=== PATIENT | female | born 1945 | race Caucasian/White ===

== ENCOUNTER 2020-04-08 21:36 | Observation (INO) | payer MEDICARE ==
[~2020-04-08] VITALS: Ht 167.6 cm; Wt 98.4 kg
[~2020-04-08 21:36] MED LIST: ASPIRIN81 MG PO; CLONAZEPAM 0.50.5 M1 PO; FOLIC ACID1 MG PO; HYDROCHLOROTHIA25 M1 PO; LISINOPRIL40 MG PO; LYRICA; OMEPRAZOLE 20 M20 M1 PO; OXYBUTYNIN CHLOR5 M1 PO; POTASSIUM CHLO10 ME1 PO; SERTRALINE HCL50 MG PO; SIMVASTATIN40 MG PO; SUPER B COMPLE1 EAC2 PO; VERAPAMIL SR240 MG PO; VITAMIN D400 UNI1 PO
[2020-04-08 21:41] VITALS: BP 182/114
[2020-04-08] MEDS ORDERED: GABAPENTIN100 MG PO (21:53)
[2020-04-08] MEDS ORDERED: BENADRYL25 MG PO (21:54)
[2020-04-08] MEDS ORDERED: KEFLEX500 M1 PO (21:54)
[2020-04-08] MEDS ORDERED: FISH OIL 1,0001 EAC9 PO (21:55)
[2020-04-08] MEDS ORDERED: IRON160 M1 PO (21:55)
[2020-04-08] MEDS ORDERED: PANTETHINE PO (21:56)
[2020-04-08] MEDS ORDERED: BENTYL 10 MG CA10 MG PO (21:57)
[2020-04-08] MEDS ORDERED: FLEXERIL PO (21:58)
[2020-04-08] MEDS ORDERED: ALPRAZOLAM 0.50.5 M1 PO (21:58)
[2020-04-08 22:07] LABS: ABSOLUTE BASOPHILS 0.1 thou/uL (0.0-0.2); ABSOLUTE EOSINOPHILS 0.1 thou/uL (0.0-0.7); ABSOLUTE LYMPHOCYTES 2.9 thou/uL (0.8-5.3); ABSOLUTE MONOCYTES 0.7 thou/uL (0.0-1.2); ABSOLUTE NEUTROPHILS 5.3 thou/uL (1.6-8.1); BASOPHILS 1.5 %; EOSINOPHILS 1.2 %; HEMATOCRIT 47.5 % (37.0-47.0); HEMOGLOBIN 16.3 gm/dL (12.0-15.0); LYMPHOCYTES 31.9 %; MCH 29.9 pg (26.0-34.0); MCHC 34.3 g/dL (28.0-37.0); MONOCYTES 7.2 %; MPV 8.4 fl. (7.2-11.1); NUCLEATED RBCS 0 /100WBC; PLATELET COUNT* 143 thou/uL (150-400); POLYS 58.2 %; RBC 5.46 mil/uL (4.20-5.00); RDW-CV 14.3 % (10.5-14.5); WBC 9.2 thou/uL (4.0-11.0)
[2020-04-08 22:15] LABS: CALCIUM 10.4 mg/dL (8.5-10.1); POTASSIUM 3.3 mmol/L (3.5-5.1)
[2020-04-08 22:16] LABS: INR 1.1; PROTIME 11.9 Seconds (9.20-11.50)
[2020-04-08 22:25] LABS: ALBUMIN 3.9 g/dL (3.4-5.0); TOTAL BILIRUBIN 0.6 mg/dL (<0.1-1.0); TOTAL PROTEIN 7.8 g/dL (6.4-8.2)
[2020-04-09 02:14] VITALS: BP 128/80
[2020-04-09 02:45] VITALS: BP 136/67
[2020-04-09 08:20] VITALS: BP 142/75
[2020-04-09 08:39] LABS: CHOLESTEROL 165 mg/dL (<200); HDL CHOLESTEROL 40 mg/dL (>40); LDL CHOLESTEROL 107 mg/dL (<100); SERUM ASSESSMENT Clear; TC:HDL 4.1 Ratio (Not establshd); TRIGLYCERIDE 91 mg/dL (<150); VLDL 18 mg/dL (<40)
--- NOTE | 2020-04-09 11:04 | EKG ---
[place] [address] ELECTROCARDIOGRAM REPORT Name: NIKOLASCECILIAA Judah Room: [address]#: [id number] Admission: 04/09/20 Attend Phys: Wander Ma Discharge: Date of : 47 Date of Service: 04/08/202141 Report #: [id number] THIS REPORT FOR: //name// [facility] ED Test Date: 2020-04-08 Test Time: 21:42:02 Pat Name: DEIRDRE CONNOR Department: Room: [facility] Gender: F Refrigeration Person: LAWRENCE : 1945 Requested By: Miranda Maldonado Order Number: [id number] MD: Sawyer Tello Measurements Intervals [place] Rate: 101 P: 42 GA: 171 QRS: -28 QRSD: 140 T: -45 QT: 374 QTc: 485 Interpretive Statements Sinus tachycardia Right bundle branch block Compared to ECG 03/04/2012 00:34:38 Sinus rhythm no longer present Electronically Signed On 04-09-2020 11:03:50 GATE PERSON by Sawyer Tello [email or web address] <ELECTRONICALLY SIGNED> By: Sawyer Tello MD, FACC 04/09/20 1103 41 41 Sawyer Tello MD, [facility] /EPI
--- NOTE | 2020-04-09 11:05 | EKG ---
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1945 Requested By: Wander Ma Order Number: [id number] Abelardo MD: Sawyer Tello Measurements Intervals [place] Rate: 75 P: 36 AK: 185 QRS: -11 QRSD: 146 T: -62 QT: 451 QTc: 504 Interpretive Statements Sinus rhythm Right bundle branch block Artifact in lead(s) I,III,aVR,aVL,aVF,V3,V4,V5,V6 and baseline wander in lead(s) V1,V3 Compared to ECG 04/08/2020 21:42:02 Sinus tachycardia no longer present Electronically Signed On 04-09-2020 11:05:17 DEBONE SUPERVISOR by Sawyer Tello [email or web address] <ELECTRONICALLY SIGNED> By: Sawyer Tello MD, [facility] 04/09/20 1105 0639 0639 Sawyer Tello MD, [facility] /EPI
[2020-04-09 11:48] LABS: CALCIUM 10.1 mg/dL (8.5-10.1); CREATININE 0.9 mg/dL (0.6-1.3); POTASSIUM 3.4 mmol/L (3.5-5.1)
[2020-04-09 12:05] VITALS: BP 134/73
[2020-04-09 16:03] VITALS: BP 148/78
[2020-04-09 20:00] VITALS: BP 150/79
[2020-04-10 04:30] VITALS: BP 132/76
[2020-04-10 04:58] LABS: ABSOLUTE EOSINOPHILS 0.1 thou/uL (0.0-0.7); ABSOLUTE LYMPHOCYTES 2.6 thou/uL (0.8-5.3); ABSOLUTE MONOCYTES 0.4 thou/uL (0.0-1.2); ABSOLUTE NEUTROPHILS 2.8 thou/uL (1.6-8.1); BASOPHILS 0.5 %; EOSINOPHILS 1.3 %; HEMATOCRIT 32.6 % (37.0-47.0); LYMPHOCYTES 44.5 %; MCH 30.1 pg (26.0-34.0); MCHC 34.3 g/dL (28.0-37.0); MCV 87.8 fL (80.0-100.0); MONOCYTES 6.8 %; MPV 8.3 fl. (7.2-11.1); NUCLEATED RBCS 0 /100WBC; PLATELET COUNT* 92 thou/uL (150-400); POLYS 46.9 %; RBC 3.71 mil/uL (4.20-5.00); WBC 5.9 thou/uL (4.0-11.0)
[2020-04-10 05:09] LABS: HEMOGLOBIN 11.2 gm/dL (12.0-15.0)
[2020-04-10 05:13] LABS: CREATININE 0.5 mg/dL (0.6-1.3)
[2020-04-10 05:50] LABS: POTASSIUM 2.3 mmol/L (3.5-5.1)
[2020-04-10 06:24] LABS: CREATININE 0.8 mg/dL (0.6-1.3)
[2020-04-10 06:28] LABS: ALBUMIN 3.3 g/dL (3.4-5.0); TOTAL BILIRUBIN 0.6 mg/dL (<0.1-1.0); TOTAL PROTEIN 6.5 g/dL (6.4-8.2)
[2020-04-10 06:30] LABS: CALCIUM 9.2 mg/dL (8.5-10.1); POTASSIUM 3.6 mmol/L (3.5-5.1)
[2020-04-10 08:00] VITALS: BP 141/60
[2020-04-10 12:03] VITALS: BP 132/75
[2020-04-10 12:43] VITALS: BP 132/75
--- NOTE | 2020-04-10 17:06 | CARDNUC ---
[place] [address] CARDIAC NUCLEAR IMAGING REPORT Name: DEIRDRE CONNOR Room: [address] Les#: [id number] Admission: 04/09/20 Attend Phys: Wander Ma Discharge: 04/10/20 Date of : 47 Date of Service: 04/10/20 1706 Report #: [id number] THIS REPORT FOR: cc: Sujata Good MD, Diane S. MD Liston, Michael J. MD [facility] ~ APPROVED REPORT Imaging Protocol: Stress Tc-99m/Rest Tc-99m 2 days Study performed: 04/09/2020 08:14:00 Indication: chest pain radiating to between scapulas/back, nausea, dizziness. Patient Location: In-Patient Room #: 211 Stress Tech: Lynn Oneill Stress Nurse: Tati Tamez RN NM Tech:GABE Gbison Ht: 5 ft 6 in Wt: 214 lbs BSA: 2.06 m2 BMI: 34.53 Medical History Medical History: Angina radiating back to between scapulas, mild nausea, epigastric discomfort, RBBB, borderline DM, dizziness, knee replacement x2, right renal artery stent, HTN, HLD, family HX of CAD, Obesity, unsteady- shuffled gait. Medications: HCTZ, lisinopril, verapamil, hydralazine, NTG, Metformin, ASA 81 Mg, Fish Oil, home meds include K+. Allergies: Percocet, PNC, propoxyphene napsylate, sulfa ABX, acetaminnophen, cephalexin. Cardiac Risk Factors: Age, borderline DM, HTN, FHX of CAD, Hyperlipidemia, RBBB, obesity. Previous Cardiac Procedures: None Pretest Chest Pain Characteristics: No chest pain Exercise History: Indeterminate Physical Disabilities: Weakness, fatigue, unsteady-shuffled gait. Meds Held (24 hrs): None Resting Data Rest SPECT myocardial perfusion imaging was performed in supine position 30 minutes following the intravenous injection of 31.2 mCi of Tc-99m [place] [address] CARDIAC NUCLEAR IMAGING REPORT Name: CONNORDEIRDRE [address] [id number] Admission: 04/09/20 Attend Phys: Wander Ma Discharge: 04/10/20 Date of : 47 Date of Service: 04/10/20 1706 Report #: [id number] Time of rest injection: 904 Date: 04/10/2020 The images were gated to evaluate regional wall motion and calculate left ventricular ejection fraction. Administration Route: IV Administration Site: Right Arm Pharmacologic Stress Pharmacologic stress test was performed by injecting Regadenoson 0.4 mg IV push over 10-15 seconds immediately followed by the intravenous injection of 31.5 mCi of Tc-99m Sestamibi. Time of stress injection: 13:45 Date: 04/09/2020 Administration Route: IV Administration Site: Right Arm Heart Rate at time of stress injection: 138 bpm. Gated Stress SPECT was performed 40 minutes after stress injection. The images were gated to evaluate regional wall motion and calculate left ventricular ejection fraction. Stress Test Details Stress Test: Pharmacologic stress was paired with low level exercise. Reason for pharmacologic stress test: Weakness, fatigue, unsteady-shuffled gait.. HR Max Heart Rate (APMHR): 146 bpm Resting HR: 78 bpm Target HR (85% APMHR): 124 bpm Max HR Achieved: 138 bpm % of APMHR: 94 Recovery HR: 101 bpm BP Resting BP: 145/91 mmHg Max BP: 217/120 mmHg Recovery BP: 150/101 mmHg ECG Resting ECG: Sinus Rhythm, RBBB Stress ECG: Sinus tachycardia, RBBB ST Change: None Arrhythmia: None Recovery ECG: Sinus Rhythm, RBBB Recovery ST Change: None Recovery Arrhythmia: None Clinical Reason for Termination: [place] [address] CARDIAC NUCLEAR IMAGING REPORT Name: DEIRDRE CONNOR Judah Room: [address] MSly#: [id number] Admission: 04/09/20 Attend Phys: Wander Ma Discharge: 04/10/20 Date of : 47 Date of Service: 04/10/20 1706 Report #: [id number] Stress Symptoms: dyspnea, fatigue, weakness, leg fatigue, increased instabillity walking. Exercise duration: 4 min 00 sec Exercise capacity: 2.30 METs The patient tolerated walking Lexiscan protocol without any cardiac symptoms. Nurse Comments A 75 year old female inpatient presented for a walking Lexiscan. Treadmill and Lexiscan tolerated with physical support and reduced speed from 1.7 mph to 1.1 mph. Recovery unremarkable with continued hypertension, asymptomatic. Patient was stable and stated she felt better when escorted via wheelchair to Nuclear Medicine for imaging. Stress ECG Conclusion The baseline twelve-lead EKG shows sinus rhythm with right bundle branch block without significant ST segment abnormality per EKGs obtained during and post walking Lexiscan protocol show sinus rhythm and sinus tachycardia with no significant ST segment changes when compared to baseline. There were no stress-induced arrhythmias. Study Quality Study: Good Artifact: Mild Diaphragmatic artifact Study Data Post stress, the left ventricular ejection was 89%.. Perfusion Perfusion images show mild photopenia in the inferior wall that is more pronounced on resting and stress images. No other significant fixed or reversible defects were identified. Global LV systolic function appears normal. Inferior wall defects are likely due to diaphragmatic attenuation artifact. Wall Motion Normal left ventricular wall motion. Nuclear Conclusion ECG Findings: negative for ischemia Clinical Findings: negative for ischemia Nuclear Findings: negative for ischemia Exercise Capacity: [place] [address] CARDIAC NUCLEAR IMAGING REPORT Name: CONNORDEIRDRE D Room: [address] Jessica Saldana#: [id number] Admission: 04/09/20 Attend Phys: Wander Ma Discharge: 04/10/20 Date of : 47 Date of Service: 04/10/201705 Report #: [id number] Left Ventricular Function: normal Risk Study: low Perfusion study shows photopenia in the infra wall likely due to diaphragmatic attenuation artifact. No other significant fixed or reversible defects are identified. Global LV systolic function is normal with normal wall motion. This is a low risk study. <Conclusion> The baseline twelve-lead EKG shows sinus rhythm with right bundle branch block without significant ST segment abnormality per EKGs obtained during and post walking Lexiscan protocol show sinus rhythm and sinus tachycardia with no significant ST segment changes when compared to baseline. There were no stress-induced arrhythmias. <ELECTRONICALLY SIGNED> By: Sawyer Tello MD, FACC 04/10/201705 05 05 Sawyer Tello MD, FACC /INF
== END 2020-04-10 12:55 | disposition home or self-care (01) ==
LOC: M.ERS 21:36 → M.2W 04-09 00:54 → M.TBA-ER 04-09 00:54 → M.2W 04-09 00:54 → M.ERS 04-09 01:54 → M.TBA-ER 04-09 01:54 → M.2W 04-09 02:20
PROVIDERS: Internal Medicine; Personal Emergency Response Attendant; Registered Nurse; ADMIT Internal Medicine; ATTEND Internal Medicine
DX: R07.89 Other chest pain (principal); Z20.822 Contact with and (suspected) exposure to COVID-19; M19.90 Unspecified osteoarthritis, unspecified site; I10 Essential (primary) hypertension; F41.9 Anxiety disorder, unspecified; F32.9 Major depressive disorder, single episode, unspecified; E66.9 Obesity, unspecified; Z68.35 Body mass index [BMI] 35.0-35.9, adult; Z88.0 Allergy status to penicillin; Z88.1 Allergy status to other antibiotic agents; Z88.5 Allergy status to narcotic agent; Z88.2 Allergy status to sulfonamides; Z79.899 Other long term (current) drug therapy; Z90.49 Acquired absence of other specified parts of digestive tract